=== PATIENT | male | born 1995 | race Caucasian/White ===

== ENCOUNTER 2017-10-01 07:15 | Day surgery (SDC) | payer BC ==
[2017-09-30 11:09] LABS: BASOPHILS 0 % (0-2); EOSINOPHILS 0.4 % (0-7); HEMATOCRIT 46.1 % (42.0-54.0); HEMOGLOBIN 16.1 g/dL (13.5-17.5); IMMATURE GRANULOCYTES 0.2 % (0-5); LYMPHOCYTES 27.4 % (15-50); MCH 29.2 pg (26.0-34.0); MCHC 34.9 g/dL (31.0-37.0); MCV 83.5 fL (80.0-100.0); MEAN PLATELET VOLUME 9.4 fL (7.4-10.4); MONOCYTES 7.9 % (2-11); NEUTROPHILS 64.1 % (40-80); RBC 5.52 10x6/uL (4.20-6.10); RDW 12.6 % (11.5-14.5); WBC 5.1 10x3/uL (4.8-10.8)
[2017-09-30 11:10] LABS: PLATELET COUNT 181 10x3/uL (130-400)
[2017-09-30 11:21] LABS: CALC OSMOLALITY 278 mosm/kg (275-300); CALCIUM 9.3 mg/dL (8.5-10.1); CHLORIDE - SERUM 105 mmol/L (98-107); CREATININE - SERUM 0.8 mg/dL (0.6-1.3); GLUCOSE 101 mg/dL (74-106); POTASSIUM - SERUM 4.1 mmol/L (3.5-5.1); SODIUM 140 mmol/L (136-145); UREA NITROGEN 13 mg/dL (7-18); eGFR NON AFRICAN AMERICAN > 90 mL/min (90-120)
[~2017-10-01] VITALS: Ht 180.3 cm; Wt 99.8 kg
--- NOTE | ~2017-10-01 | OP ---
PATIENT NAME: ALLEN MCKENZIE MEDICAL RECORD: [id number] :96 LOCATION:[facility] ADMISSION DATE: SURGEON: ALONZO FAN MD DATE OF OPERATION: 10/01/2017 PREOPERATIVE DIAGNOSES: 1. Bilateral gynecomastia. 2. Anxiety disorder. POSTOPERATIVE DIAGNOSES: 1. Bilateral gynecomastia. 2. Anxiety disorder. PROCEDURE: Bilateral simple mastectomy. SURGEON: Alonzo Fan MD REPORT OF PROCEDURE: The patient's bilateral breasts were prepped and draped in sterile fashion. We were going to perform a nipple sparing procedure. We started on the left side. A semicircular incision was made on the inferior aspect of the nipple areolar complex. Electrocautery was used to dissect through the subcutaneous tissues. We removed a segment of the breast tissue, leaving behind a thick layer of subcutaneous tissue. The breast tissue was removed as far superiorly, inferiorly, medially, and laterally as possible and was carried down all the way to just above the pectoral fascia. The entire specimen was sent off. We then inspected the area and any bleeding that was found was treated with electrocautery or with ligation. We then placed a 15-Persian Andrew drain through the axilla and placed it in the subcutaneous pouch. We left the wound open at this time. We then approached the right side. Again, a semicircular incision was made at the edge of the inferior nipple areolar complex. The subcutaneous tissues were transected with electrocautery and then we again came around the breast tissue, leaving a thick layer of subcutaneous fatty tissue. The dissection was continued far superiorly, inferiorly, medially, and laterally as possible. This was then excised off of the chest wall just above the pectoral fascia. Any bleeding that was found was treated with electrocautery or with suture ligation. We inspected this area carefully to assure there was no sign of any further active bleeding. We inspected the skin layer and assured that everything appeared to be flat and uniform in depth. We then placed a 15-Persian Andrew drain through the right axilla and placed it in the subcutaneous pouch. The wounds were then irrigated out thoroughly with normal saline. The subcutaneous tissues of the 2 incisions were reapproximated with interrupted 3-0 Vicryl and the skin incisions were closed with running subcutaneous 5-0 Monocryl. The drains were sutured into place with 3-0 nylons. Dressings were then applied. COMPLICATIONS: None. CONDITION: Stable. ANESTHESIA: General endotracheal. BLOOD LOSS: 50 mL. TRANSINT:[id number] Voice Confirmation ID: [id number] DOCUMENT ID: [id number] OPERATIVE REPORT [id number] ALLEN MCKENZIE CHRISTIAN MD at 0804 CC: SHUBHAM BARRETT MD [id number] DICTATION DATE: 10/01/17 1038 [employer] DES[employer]ER: 10/01/17 1248 [facility] 10/01/17 [id number] [place] [address]
[~2017-10-01 07:15] MED LIST: CELEXA20 MG PO
[2017-10-01 07:45] VITALS: BP 126/85; Ht 180.3 cm; Wt 99.8 kg
[2017-10-01] MEDS ORDERED: HYDROCODONE-APA1 TAB PO (10:33)
== END 2017-10-01 12:35 | disposition home or self-care (01) ==
LOC: D.OPS 07:15 → D.PAN 09:15 → D.OPS 09:15
PROVIDERS: Surgery
DX: N62 Hypertrophy of breast (principal); F41.9 Anxiety disorder, unspecified; Z01.812 Encounter for preprocedural laboratory examination

== ENCOUNTER → 2017-12-30 16:39 | Outpatient (CLI) | payer MEDICAID ==
[2017-10-01 07:45] VITALS: BMI 30.7
[~2017-12-30 16:39] MED LIST changes: +HYDROCODONE-APA1 TAB PO
== END | disposition home or self-care (01) ==
LOC: D.MRI 16:39
DX: M25.512 Pain in left shoulder (principal)